=== PATIENT | female | born 1960 | race Caucasian/White ===

== ENCOUNTER → 2018-10-28 | Outpatient (CLI) | payer OTHER | LOC: NUC 09:41 | DX: M25.551 Pain in right hip (principal); M79.604 Pain in right leg; W19.XXXA Unspecified fall, initial encounter; Z96.641 Presence of right artificial hip joint ==

== ENCOUNTER 2018-12-04 14:46 | Inpatient (IN) | payer OTHER ==
[~2018-12-04] VITALS: Ht 139.7 cm; Wt 57.2 kg
[2018-12-04 16:20] VITALS: BP 142/80
[2018-12-04] MEDS ORDERED: ASPIRIN EC325 M1 PO (16:34)
[2018-12-04] MEDS ORDERED: TYLENOL325 MG PO (16:34)
[2018-12-04] MEDS ORDERED: COLACE100 MG PO (16:35)
[2018-12-04] MEDS ORDERED: DOXEPIN 25 MG C25 M1 PO (16:35)
[2018-12-04] MEDS ORDERED: DURAGESIC1 EACH TRANSDERM (16:38)
[2018-12-04] MEDS ORDERED: OXYCODONE HCL 55 MG PO (16:40)
[2018-12-04] MEDS ORDERED: OXYCODONE HCL10 MG PO (16:41)
[2018-12-04] MEDS ORDERED: SENNA8.6 MG PO (16:43)
[2018-12-04] MEDS ORDERED: MIRALAX17 GM PO (16:43)
[2018-12-04] MEDS ORDERED: EFFEXOR XR150 MG PO (16:45)
[2018-12-04 19:15] VITALS: BP 123/76
[2018-12-05 08:26] LABS: HEMATOCRIT 35.7 % (37.0-47.0); HEMOGLOBIN 12.3 gm/dL (12.0-15.0); MCH 32.1 pg (26.0-34.0); MCHC 34.5 g/dL (28.0-37.0); MCV 93.1 fL (80.0-100.0); RBC 3.84 mil/uL (4.20-5.00); RDW 13.6 % (10.5-14.5); WBC 8.8 thou/uL (4.0-11.0)
[2018-12-05 08:31] LABS: CALCIUM 9.4 mg/dL (8.5-10.1); CREATININE 0.7 mg/dL (0.6-1.0); POTASSIUM 3.7 mmol/L (3.5-5.1)
[2018-12-05 08:54] VITALS: BP 131/85
[2018-12-05 19:49] VITALS: BP 149/95
[2018-12-06 08:00] VITALS: BP 128/84
[2018-12-06 21:04] VITALS: BP 130/83
[2018-12-07 08:35] VITALS: BP 112/74
[2018-12-07 22:20] VITALS: BP 123/79
[2018-12-08 07:30] VITALS: BP 128/71
--- NOTE | 2018-12-08 10:47 | HC ---
[facility] [place] [address] CONSULTATION Name: MYLA MCCALL Room #: 501-A [facility] IN .R.#: [id number] Admission: 12/04/18 ������������������ Attend Phys: Tesfaye Eckert MD Discharge: ������������������ Date of : 62 Report #: [id number] THIS REPORT FOR: //name// CC: Tesfaye Peralta DATE OF SERVICE: 12/06/2018 PSYCHOLOGICAL CONSULTATION ATTENDING PHYSICIAN: Tesfaye Eckert M.D. BRADDER: Leobardo Henriquez, PhD. 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 The patient has a history of multiple epiphyseal dysplasia, with multiple prior joint replacements. Additional assessment included prior bilateral total knee replacements, history of prior right ankle replacement, history of prior left elbow replacement, deep venous thrombosis prophylaxis, posterior hip precautions, nonweightbearing, history of postop anemia, hypertension and depression. A complete description of her medical condition and history can be found in her medical record. Psychological consultation was requested to provide assistance in the assessment of emotional status and provide psychological services. Prior to this most recent admission, she had been living independently with her in their home. She has 2 children. The patient is a high school graduate. 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 She went on disability at age 41. The patient has 4 siblings. A family history of alcoholism in her father and depression in her siblings is reported. Her family is supportive. TECHNIQUES UTILIZED: Clinical interview, review of medical records, staff consultation and behavioral observation. EXAMINATION FINDINGS: The patient was alert and cooperative with the assessment. She accurately described events surrounding her admission. There is no evidence of aphasia. Her thoughts are logical and goal oriented. There is no evidence of thought disorder. She does not report auditory or visual hallucinations. She describes increased anxiety and variability in mood since this procedure. Difficulty with sleep as a result of pain and discomfort. She also has been [facility] [address] [place] [address] CONSULTATION Name: MYLA MCCALL Room #: 501-A [facility] IN M.R.#: [id number] Admission: 12/04/18 ������������������ Attend Phys: Tesfaye Eckert MD Discharge: ������������������ Date of : 62 Report #: [id number] having racing thoughts associated with her concern about returning to a higher level of independence. She had been successful in reducing narcotic medication until this most recent procedure and is worried about her ability to return to prior success. Her appetite is good. She has not had psychological counseling associated with pain management or treatment for depression, although the use of antidepressant medications are reported. DIAGNOSTIC IMPRESSION: Adjustment disorder with anxiety and depressed mood. RECOMMENDATIONS: We discussed psychological strategies to assist with pain management, including the use of a relaxation technique. I instructed her in a relaxation and pain management strategy. She felt the technique to be very helpful. She may benefit from further psychotherapy upon her discharge to assist in pain management strategies as well as methods for managing anxiety more efficiently. Verbal praise and complements about participation in therapies along with the use of breathing strategies for managing anxiety will also contribute to her success during rehabilitation. Thank you very much for allowing me to provide the consultation on this patient. ��������������������������������������������� <ELECTRONICALLY SIGNED> ���������������������������������������� By: Leobardo Henriquez, PhD ��������������������������������������������� 12/08/18 1047 1414 0012 Leobardo Henriquez, PhD /nt
[2018-12-08 19:30] VITALS: BP 111/71
[2018-12-09 08:08] VITALS: BP 104/70
[2018-12-09 19:05] VITALS: BP 118/65
[2018-12-10] MEDS ORDERED: DICLOFENAC SODI75 MG PO (00:11)
[2018-12-10 07:30] VITALS: BP 112/74
[2018-12-10 20:28] VITALS: BP 109/73
[2018-12-11 05:31] LABS: ABSOLUTE NEUTROPHILS 3.9 thou/uL (1.4-8.2); BASOPHILS 0.5 % (0.0-2.0); EOSINOPHILS 1.7 % (0.0-3.0); HEMATOCRIT 31.3 % (37.0-47.0); HEMOGLOBIN 10.9 gm/dL (12.0-15.0); LYMPHOCYTES 34.5 % (24.0-44.0); MCH 33.2 pg (26.0-34.0); MCV 94.9 fL (80.0-100.0); MONOCYTES 7.8 % (1.0-8.0); PLATELET COUNT 274 thou/uL (150-400); POLYS 55.5 % (36.0-66.0); RDW 14.4 % (10.5-14.5); WBC 7.1 thou/uL (4.0-11.0)
[2018-12-11 05:41] LABS: CALCIUM 8.8 mg/dL (8.5-10.1); CREATININE 0.5 mg/dL (0.6-1.0); POTASSIUM 3.9 mmol/L (3.5-5.1)
[2018-12-11 08:44] VITALS: BP 128/81
[2018-12-11 21:07] VITALS: BP 125/85
[2018-12-12 08:45] VITALS: BP 122/67
[2018-12-12 19:50] VITALS: BP 115/78
[2018-12-13 07:30] VITALS: BP 120/74; BP 153/67
[2018-12-13 19:13] VITALS: BP 124/77
[2018-12-14 07:15] VITALS: BP 127/77
--- NOTE | 2018-12-14 10:44 | PLAN ---
[facility] [address] [address] REHAB UNIT PLAN OF CARE Name: MYLA MCCALL Room #: 501-A ADM IN M.R.#: [id number] Admission: 12/04/18 ������������������ Attend Phys: Tesfaye Eckert MD Discharge: ������������������ Date of : 62 Report #: [id number] THIS REPORT FOR: //name// CC: Tesfaye Peralta DATE OF SERVICE: 12/07/2018 PROGRESS NOTE/OVERALL PLAN OF CARE SUBJECTIVE: The patient is seen back today in followup. She is in no distress. Last recorded temperature 36.7, pulse 82, respirations 16, blood pressure is 112/74. No focal calf swelling. She has a small amount of bloody appearing discharge on the distal part of her incisional dressing. Discussed with nursing and we will go ahead and have nursing changed that today with the original plan for it being changed tomorrow as per Orthopedics. Nursing is to contact Orthopedics if there are any issues. The patient otherwise is progressing in her therapies with transfers at a mod assist level. She has opted a little bit in the parallel bars, 2 steps. She is nonweightbearing on that right lower extremity. In occupational therapy, lower body dressing is moderate assistance. Upper body dressing is supervision. ASSESSMENT: 1. Right total hip revision, nonweightbearing. 2. History of multiple epiphyseal dysplasia with multiple prior joint replacements. 3. Prior bilateral total knee replacements. 4. History of prior right ankle replacement. 5. History of prior left elbow replacement. 6. Deep venous thrombosis prophylaxis, on aspirin. 7. History of posterior hip precautions, nonweightbearing. 8. History of postoperative anemia. 9. Hypertension. 10. History of depression. PLAN: The overall plan of care is based on the preadmission screen, post-admission physician evaluation and information garnered from therapy assessments. 1. Estimated length of stay is probably at least 10 days to 2 weeks. 2. Medical prognosis is reasonably good. 3. Anticipated interventions includes the interdisciplinary acute inpatient rehabilitation program. 4. Anticipated functional outcomes would be for the patient to improve as far as transfers, mobility and ADLs at her nonweightbearing status. 5. Expected therapy by discipline includes PT and OT 1-1/2 hours per day each [address] [address] REHAB UNIT PLAN OF CARE Name: MYLA MCCALL Room #: 501-A [facility].#: [id number] Admission: 12/04/18 ������������������ Attend Phys: Tesfaye Eckert MD Discharge: ������������������ Date of : 62 Report #: [id number] five days a week throughout the duration of the acute inpatient rehabilitation stay. ��������������������������������������������� <ELECTRONICALLY SIGNED> ���������������������������������������� By: Tesfaye Eckert MD ��������������������������������������������� 12/14/18 1044 0933 2234 Tesfaye Eckert MD /nt
--- NOTE | 2018-12-14 10:44 | H ---
[facility] [place] [address] HISTORY AND PHYSICAL Name: MYLA MCCALL Room #: 501-A [facility] IN .R.#: [id number] Admission: 12/04/18 ������������������ Attend Phys: Tesfaye Eckert MD Discharge: ������������������ Date of : 62 Report #: [id number] THIS REPORT FOR: //name// CC: Tesfaye Peralta DATE OF SERVICE: 12/04/2018 HISTORY AND PHYSICAL AND POST-ADMISSION PHYSICIAN EVALUATION HISTORY OF PRESENT ILLNESS: The patient is a 58-year-old white female who was admitted from [facility], post right total hip revision. This is the third hip revision that she has undergone. She offers a history of multiple epiphyseal dysplasia, a rare inherited disorder and she has undergone multiple joint replacements in the past. This is actually her third total hip revision with the first occurring approximately 10 years ago. She has had bilateral knees replaced, right ankle replaced left elbow replaced. She is limited to nonweightbearing right lower extremity. She is on aspirin b.i.d. for DVT prophylaxis. She has now been admitted for acute in-hospital inpatient rehabilitation. PAST MEDICAL HISTORY: As noted above. PAST SURGICAL HISTORY: Also as noted above. ALLERGIES: PENICILLIN. MEDICATIONS: Please see the full medication listing. This includes enteric-coated aspirin 325 b.i.d. as well as pain medication as noted. DIET: Regular. FAMILY HISTORY: Noncontributory. HABITS: No history of alcohol or tobacco abuse. SOCIAL HISTORY: Her works in the [employer] at nights here at [facility]. They live in a house five steps in. Premorbidly, she utilized crutches and was doing some limited weightbearing on that right lower extremity previously. Her goal is to use a scooter and get around in a scooter in her house while she maintains nonweightbearing on that right lower extremity. She notes she does quite well with the crutches. She thinks she should be able to get in and out of the bathroom, although she did use a vanity top to walk previously. Her last fall was 2 months ago. There is a son and daughter in the area that could assist as well. [address] [address] HISTORY AND PHYSICAL Name: MYLA MCCALL Room #: 501-A ADM IN M.R.#: [id number] Admission: 12/04/18 ������������������ Attend Phys: Tesfaye Eckert MD Discharge: ������������������ Date of : 62 Report #: [id number] REVIEW OF SYSTEMS: No current complaints of chest pain, shortness of breath or abdominal discomfort. Some mild right hip discomfort as expected. She has some weakness of her hands and notes that she has had a nerve impingement involving that right hand. No fever or chills. No history of bowel or bladder changes. PHYSICAL EXAMINATION: GENERAL: The patient is a pleasant 58-year-old short statured white female in no obvious distress. VITAL SIGNS: She has a temperature of 98.2, pulse 61, respirations 17, blood pressure 142/80. HEENT: Facies are symmetric. Excellent historian. CHEST: Sounded clear to auscultation. CARDIOVASCULAR: Regular rate and rhythm. ABDOMEN: Mildly obese. Bowel sounds positive, nontender. GENITOURINARY AND RECTAL: Deferred. EXTREMITIES: She does have functional range of motion of the shoulders. She has got the old left elbow incision, which appears well healed. She does have some atrophy of the right hand musculature with strength probably a grade 4-/5. Some decreased hydrator operator compared to the left. Left hydrator operator is more of 4-/5. In her lower extremities, she has the old knee incisions. She has a right hip dressing in place. There is no focal calf swelling. She can dorsiflex that right ankle. No clinical evidence for lower extremity DVT. Left lower extremity strength is probably a grade 4-/5. ASSESSMENT: A 58-year-old white female with the following problem list: 1. Right total hip revision, nonweightbearing. 2. History of multiple epiphyseal dysplasia with multiple prior joint replacements. 3. Prior bilateral total knee replacements. 4. History of prior right ankle replacement. 5. History of prior left elbow replacement. 6. Deep venous thrombosis prophylaxis, on aspirin. SCDs also ordered. 7. She has posterior hip precautions, nonweightbearing. 8. History of postop anemia. 9. Hypertension. 10. History of depression. PLAN: The patient is admitted for acute in-hospital inpatient rehabilitation. From a postadmission physician evaluation perspective, there are no relevant changes since the preadmission screening. Please see the above review of prior and current medical and functional conditions and comorbidities. Please see the patient's previous and current functional status. As far as risk of complications, the patient has multiple medical comorbidities as noted above. Initial plan of care involves the interdisciplinary acute inpatient rehabilitation program with a goal of maximizing the patient's functional independence, so she can hopefully return back to her prior living situation. [facility] [address] [place] [address] HISTORY AND PHYSICAL Name: MYLA MCCALL Room #: 501-A ADM IN M.R.#: [id number] Admission: 12/04/18 ������������������ Attend Phys: Tesfaye Eckert MD Discharge: ������������������ Date of : 62 Report #: [id number] Prognosis is reasonably good with estimated length of stay probably at least 10 days to 2 weeks and potentially longer as warranted. Potential barriers would include her above noted medical comorbidities and her decreased functional status. The patient meets diagnostic criteria for an acute in-hospital inpatient rehabilitation stay. She meets the medical necessity criteria and we will have the hospitalist physicians follow along. She does have the tolerance of therapies and has appropriate discharge goals back to the home setting. ��������������������������������������������� <ELECTRONICALLY SIGNED> ���������������������������������������� By: Tesfaye Eckert MD ��������������������������������������������� 12/14/18 1044 1710 1948 Tesfaye Eckert MD /nt
[2018-12-14 19:00] VITALS: BP 108/73
[2018-12-15] MEDS ORDERED: VOLTAREN100 GM TOP (08:04)
[2018-12-15] MEDS ORDERED: ZANAFLEX4 MG PO (08:04)
[2018-12-15 09:02] VITALS: BP 131/77
[2018-12-15] MEDS ORDERED: NORCO 7.5-3251 EACH PO (09:20)
[2018-12-15 09:45] VITALS: BP 131/77
[2018-12-15 10:55] VITALS: BP 131/77
== END 2018-12-15 12:25 | disposition home health service (06) | DRG 565 ==
PROVIDERS: Nurse Practitioner; Nurse Practitioner Family; ADMIT Physical Medicine & Rehabilitation
DX: M21.851 Other specified acquired deformities of right thigh (principal); D62 Acute posthemorrhagic anemia; Z96.653 Presence of artificial knee joint, bilateral; Z96.622 Presence of left artificial elbow joint; I10 Essential (primary) hypertension; F43.23 Adjustment disorder with mixed anxiety and depressed mood; G89.29 Other chronic pain; Z96.643 Presence of artificial hip joint, bilateral; Z96.641 Presence of right artificial hip joint; Z88.0 Allergy status to penicillin; Z98.84 Bariatric surgery status; Z47.1 Aftercare following joint replacement surgery
CPT/HCPCS: 10112

== ENCOUNTER → 2020-01-26 | Outpatient (CLI) | payer OTHER ==
[~2020-01-26] MED LIST: ASPIRIN EC325 M1 PO; COLACE100 MG PO; DICLOFENAC SODI75 MG PO; DOXEPIN 25 MG C25 M1 PO; DURAGESIC1 EACH TRANSDERM; EFFEXOR XR150 MG PO; MIRALAX17 GM PO; NORCO 7.5-3251 EACH PO; OXYCODONE HCL 55 MG PO; OXYCODONE HCL10 MG PO; SENNA8.6 MG PO; TYLENOL325 MG PO; VOLTAREN100 GM TOP; ZANAFLEX4 MG PO
[2020-01-26 13:52] LABS: ABSOLUTE NEUTROPHILS 2.5 thou/uL (1.4-8.2); BASOPHILS 0.8 % (0.0-2.0); HEMATOCRIT 39.1 % (37.0-47.0); HEMOGLOBIN 13.5 gm/dL (12.0-15.0); LYMPHOCYTES 42.1 % (24.0-44.0); MCH 32.2 pg (26.0-34.0); MCHC 34.5 g/dL (28.0-37.0); MCV 93.4 fL (80.0-100.0); MONOCYTES 4.7 % (1.0-8.0); PLATELET COUNT 264 thou/uL (150-400); POLYS 49.4 % (36.0-66.0); RBC 4.19 mil/uL (4.20-5.00); RDW 12.8 % (10.5-14.5); WBC 5.2 thou/uL (4.0-11.0)
[2020-01-26 14:05] LABS: ALBUMIN 4.5 g/dL (3.4-5.0); CALCIUM 9.2 mg/dL (8.5-10.1); CREATININE 0.9 mg/dL (0.6-1.0); POTASSIUM 4.2 mmol/L (3.5-5.1); TOTAL BILIRUBIN 0.5 mg/dL (0.2-1.0); TOTAL PROTEIN 7.7 g/dL (6.4-8.2)
[2020-01-26 14:39] LABS: TSH 1.165 uIU/mL (0.358-3.740)
== END ==
LOC: LABMALL 13:07
PROVIDERS: ATTEND Family Medicine
DX: R53.83 Other fatigue (principal)

== ENCOUNTER → 2020-02-04 | Outpatient (CLI) | payer OTHER ==
--- NOTE | 2020-02-04 15:30 | 2DMMODE ---
[facility] [place] [address] 2 D/M-MODE ECHOCARDIOGRAM Name: MYLA MCCALL Room #: [facility]OE Ricki#: [id number] Admission: 02/04/20 Attend Phys: Andrew Peralta MD Discharge: Date of : 62 Report #: [id number] THIS REPORT FOR: cc: Andrew Peralta MD, Kevin R. MD Lammoglia, Francisco J. MD ~ APPROVED REPORT Study performed: 02/04/2020 14:23:06 EXAM: Comprehensive 2D, Doppler, and color-flow Echocardiogram Patient Location: Out-Patient Room #: Echo lab 1 Status: routine BSA: 1.42 HR: 71 bpm BP: 122/76 mmHg Rhythm: NSR Other Information Study Quality: Good Indications Aortic Valve Disease Murmur 2D Dimensions RVDd: 27.38 mm IVSd: 8.70 (7-11mm) LVOT Diam: 18.82 (18-24mm) LVDd: 39.64 mm PWd: 8.86 (7-11mm) Ascending Ao: 29.53 (22-36mm) LVDs: 23.96 (25-40mm) Aortic Root: 30.61 mm IVC: 17.00 mm Volumes Left Atrial Volume (Systole) Single Plane 4CH: 20.99 mL Single Plane 2CH: 28.05 mL LA ESV Index: 20.00 mL/m2 Aortic Valve AoV Peak Ian.: 1.57 m/s AO Peak Gr.: 9.83 mmHg LVOT Max P.19 mmHg LVOT Max V: 1.14 m/s DYLLAN Vmax: 2.[address] [facility] [address] [place] [address] 2 D/M-MODE ECHOCARDIOGRAM Name: MYLA MCCALL Room #: REG [facility]#: [id number] Admission: 02/04/20 Attend Phys: Andrew Peralta MD Discharge: Date of : 62 Report #: [id number] Mitral Valve E/A Ratio: 0.8 MV Decel. Time: 215.74 ms MV E Max Ian.: 0.86 m/s MV A Ian.: 1.06 m/s MV PHT: 62.56 ms IVRT: 124.57 ms Pulmonary Valve PV Peak Ian.: 0.85 m/s PV Peak Gr.: 2.90 mmHg Pulmonary Vein P Vein S: 0.88 m/s P Vein A: 0.43 m/s P Vein D: 0.49 m/s P Vein A Dur.: 101.5 msec P Vein S/D Ratio: 1.80 Tricuspid Valve TR Peak Ian.: 2.16 m/s TR Peak Gr.: 18.61 mmHg PA Pressure: 24.00 mmHg Left Ventricle The left ventricle is normal size. There is normal LV segmental wall motion. There is normal left ventricular wall thickness. Left ventricular systolic function is normal. The left ventricular ejection fraction is within the normal range. LVEF is 55-60%. Grade I - abnormal relaxation pattern. Right Ventricle The right ventricle is normal size. The right ventricular systolic function is normal. Atria The left atrium size is normal. The right atrium size is normal. Aortic Valve The aortic valve is normal in structure. The Aortic valve is sclerotic. Mild aortic regurgitation. There is no aortic valvular stenosis. Mitral Valve The mitral valve is normal in structure. There is no mitral valve regurgitation noted. No evidence of mitral valve stenosis. [facility] [address] [place] [address] 2 D/M-MODE ECHOCARDIOGRAM Name: MYLA MCCALL Room #: REG CL [facility].#: [id number] Admission: 02/04/20 Attend Phys: Andrew Peralta MD Discharge: Date of : 62 Report #: [id number] Tricuspid Valve The tricuspid valve is normal in structure. There is trace tricuspid regurgitation. Estimated PAP 24 mmHg. There is no pulmonary hypertension. Pulmonic Valve The pulmonary valve is normal in structure. There is no pulmonic valvular regurgitation. Great Vessels The aortic root is normal in size. IVC is normal in size and collapses >50% with inspiration. Pericardium There is no pericardial effusion. <Conclusion> The left ventricle is normal size. LVEF is 55-60%. The aortic valve is normal in structure. The Aortic valve is sclerotic. Mild aortic regurgitation. The mitral valve is normal in structure. The tricuspid valve is normal in structure. The pulmonary valve is normal in structure. There is no pericardial effusion. <ELECTRONICALLY SIGNED> By: Adarsh Jimenes MD 02/04/20 1530 1530 1530 Adarsh Jimenes MD /INF
== END ==
LOC: CV 10:17
PROVIDERS: ATTEND Family Medicine
DX: I35.1 Nonrheumatic aortic (valve) insufficiency (principal); R03.0 Elevated blood-pressure reading, without diagnosis of hypertension

== ENCOUNTER → 2020-06-21 | Outpatient (CLI) | payer OTHER ==
[2020-06-21 10:32] LABS: ABSOLUTE NEUTROPHILS 2.8 thou/uL (1.4-8.2); BASOPHILS 0.9 % (0.0-2.0); EOSINOPHILS 3.8 % (0.0-3.0); HEMOGLOBIN 12.3 gm/dL (12.0-15.0); MCH 32.3 pg (26.0-34.0); MCHC 34.2 g/dL (28.0-37.0); MCV 94.5 fL (80.0-100.0); MONOCYTES 6.6 % (1.0-8.0); PLATELET COUNT 262 thou/uL (150-400); POLYS 42.7 % (36.0-66.0); RBC 3.81 mil/uL (4.20-5.00); RDW 12.8 % (10.5-14.5); WBC 6.7 thou/uL (4.0-11.0)
[2020-06-21 10:54] LABS: ALBUMIN 4.6 g/dL (3.4-5.0); ANION GAP 14 mmol/L (7-16); BUN 20 mg/dL (7-18); CALCIUM 9.3 mg/dL (8.5-10.1); CHLORIDE 102 mmol/L (98-107); CHOLESTEROL 212 mg/dL (<200); CO2 26 mmol/L (21-32); CREATININE 1.1 mg/dL (0.6-1.0); GLUCOSE 95 mg/dL (74-106); HDL CHOLESTEROL 44 mg/dL (>40); LDL CHOLESTEROL 132 mg/dL (<100); SGOT 31 U/L (15-37); SGPT 53 U/L (30-65); SODIUM 142 mmol/L (136-145); TC:HDL 4.8 Ratio (Not establshd); TOTAL BILIRUBIN 0.3 mg/dL (0.2-1.0); TOTAL PROTEIN 8.1 g/dL (6.4-8.2); TRIGLYCERIDE 182 mg/dL (<150); VLDL 36 mg/dL (<40)
== END ==
LOC: LAB 09:43
PROVIDERS: ATTEND Family Medicine
DX: I10 Essential (primary) hypertension (principal)

== ENCOUNTER → 2021-03-08 | Outpatient (CLI) | payer OTHER ==
[2021-03-08 15:01] LABS: BASOPHILS 0.7 % (0.0-2.0); HEMATOCRIT 34.8 % (37.0-47.0); LYMPHOCYTES 33.3 % (24.0-44.0); MCH 32.1 pg (26.0-34.0); MCHC 34.6 g/dL (28.0-37.0); MCV 92.9 fL (80.0-100.0); MONOCYTES 4.3 % (1.0-8.0); PLATELET COUNT 249 thou/uL (150-400); POLYS 59.7 % (36.0-66.0); RBC 3.75 mil/uL (4.20-5.00); RDW 12.2 % (10.5-14.5); WBC 6.7 thou/uL (4.0-11.0)
[2021-03-08 15:16] LABS: ALBUMIN 4.6 g/dL (3.4-5.0); ANION GAP 13 mmol/L (7-16); BUN 21 mg/dL (7-18); CALCIUM 9.2 mg/dL (8.5-10.1); CHLORIDE 102 mmol/L (98-107); CHOLESTEROL 209 mg/dL (<200); CO2 24 mmol/L (21-32); GLUCOSE 104 mg/dL (74-106); HDL CHOLESTEROL 48 mg/dL (>40); LDL CHOLESTEROL 129 mg/dL (<100); POTASSIUM 4.2 mmol/L (3.5-5.1); SGOT 42 U/L (15-37); SGPT 104 U/L (30-65); SODIUM 139 mmol/L (136-145); TC:HDL 4.4 Ratio (Not establshd); TOTAL BILIRUBIN 0.4 mg/dL (0.2-1.0); TOTAL PROTEIN 8.3 g/dL (6.4-8.2); TRIGLYCERIDE 164 mg/dL (<150); VLDL 33 mg/dL (<40)
== END ==
LOC: LAB 14:06
PROVIDERS: ATTEND Family Medicine
DX: Z00.00 Encounter for general adult medical examination without abnormal findings (principal)